=== PATIENT | female | born 1995 | race African-American/Black ===

== ENCOUNTER 2023-05-25 10:29 | Emergency (ER) | payer BC, SELFPAY ==
[2023-05-25 10:42] VITALS: BP 135/87
--- NOTE | 2023-05-25 12:00 | ED.GENMED ---
History of Present Illness
General
Chief Complaint: Female Roving Carrier/Gu symptoms
Source: patient
Exam Limitations: none
Time Seen by Provider: 05/25/23 11:13
Nursing documentation reviewed up to this point in time: agreed with
Travel History
Have you had any contact with someone who has COVID-19?: No
Do you have any symptoms of coronavirus? Fever > 100 degrees, chills, cough, shortness of breath, sore throat, loss of taste or smell, muscle aches, or headache?: No
History of Present Illness
History of Present Illness:
Patient presents to ED for evaluation secondary to vaginal bleeding. Patient states that she started to have abnormal significant bleeding 1 month ago. Patient was evaluated by her PATIENT REGISTRATION CLERK physician at [facility] 2 weeks ago.
Patient was started on medroxyprogesterone and had an outpatient ultrasound ordered, which revealed myometrial cysts. While she was taking the medication, her bleeding had stopped completely. Unfortunately, after last dose of medication 4 days
ago, vaginal bleeding started again 1 day after. Patient has an appointment with her PATIENT REGISTRATION CLERK physician via teleconference this afternoon. However, when she got up this morning her bleeding was heavier and she felt tired, prompting visit to ED for an
evaluation. Denies headache. Denies chest pain or shortness of breath. Denies vomiting. Denies abdominal pain. Denies previous history of similar symptoms.
Review of Systems
Review of Systems
Allergies reviewed?: Yes
All Other Systems: ROS reviewed and negative except as documented in HPI and ROS
Constitutional: Reports no symptoms; Denies fever
EENT: Reports no symptoms
Respiratory: Reports no symptoms; Denies trouble breathing
Cardiac: Reports no symptoms
ABD/GI: Reports no symptoms; Denies vomiting
: Reports bleeding
Musculoskeletal: Reports no symptoms
Skin: Reports no symptoms
Neurological: Reports weakness; Denies dizzy or headache
Phy Exam
Physical Exam
Physical Exam:
Physical Exam
General: mild distress, not acutely ill. afebrile
Head: nc/at. eomi
Neck: supple. no meningeal signs.
Abdomen: normal bowel sounds. not tender.
: (FRANCISCA Gillespie, at bedside) : speculum exam: no pulsatile bleeding noted. no clots. minimal pooled blood noted at vault, removed with 3 long Qtips.
Neuro: alert and oriented. no focal neurological deficits
Skin: no rash
Psychiatric: well kept. interactive and cooperative
Extremities: no edema. no calf tenderness.
Course
Orders/Labs/Results
Orders:
Orders
05/25/23 11:49
Test Result ONCE
05/25/23 11:57
Basic Metabolic Panel Urgent
Complete Blood Count/No Diff Urgent
HCG, Serum Qualitative Screen Urgent
PTT Urgent
Prothrombin Time Urgent
05/25/23 12:35
Tranexamic Acid [Cyklokapron] 1,300 mg PO NOW STA
Abnormal Lab Results
05/25/23
11:57
Hgb 11.6 L g/dL
(12.0-16.0)
Hct 34.7 L %
(37.0-47.0)
MPV 11.1 H fL
(7.4-10.4)
Creatinine 0.5 L mg/dL
(0.6-1.0)
05/25/23 11:57
05/25/23 11:57
Vital Signs
Initial and Last Documented VS:
Initial Vital Signs
Temp Pulse Resp BP Pulse Ox
98.4 F 95 16 135/87 98
05/25/23 10:42 05/25/23 10:42 05/25/23 10:42 05/25/23 10:42 05/25/23 10:42
Last Documented Vital Signs
Temp Pulse Resp BP Pulse Ox
98.4 F 95 16 135/87 98
05/25/23 10:42 05/25/23 10:42 05/25/23 10:42 05/25/23 10:42 05/25/23 10:42
MDM/Problems Addressed
MDM/Problems Addressed:
H/H stable, especially in light of patient's anemia history.
Pt will be given dose of TXA prior to discharge. Pt will speak further with her glass calibrator physician regarding further medication treatment. Otherwise, patient is hemodynamically stable and nontoxic-appearing at time of discharge, to the care of her
family.
*Critical Care Note
Total Time (30-74mins, 75-104mins- exclusive of procedures): Not Applicable
ED Attending Note
-
Portions of this chart may have been created with voice recognition software.� Occasional wrong word or��sound alike� substitutions may have occurred due to the inherent limitations of voice recognition software.
Discharge Plan
Departure
Patient Disposition: Home (Routine Discharge)
Date of Disposition: 05/25/23
Time of Disposition: 12:38
Patient with high blood pressure during this ER visit?: Yes
Condition: Good
Discharge Problem:
Vaginal bleeding
Instructions: Bleeding Between Periods
Referrals:
NONE,* [Family Provider] -
Activity Restrictions/Additional Instructions:
As discussed, please follow-up with your PATIENT REGISTRATION CLERK physician later this afternoon for further evaluation and treatment.
Interventions
Interventions:
*Risk Screen - Suicide Last Done: 05/25/23 11:28
*General Assessment Last Done: 05/25/23 11:28
*Neglect/Abuse Screening Last Done: 05/25/23 11:28
ED- Fall Risk Assessment Last Done: 05/25/23 11:28
*Nursing Disposition Last Done: 05/25/23 13:08
ED-Female Genitourinary Assessment Last Done: 05/25/23 11:31
Discharge Date and Time
Discharge Date/Time: 05/25/23 13:11
[2023-05-25 12:16] LABS: Hematocrit 34.7 % (37.0-47.0); Hemoglobin 11.6 g/dL (12.0-16.0); Mean Corp Hgb Conc. 33.4 g/dL (33.0-37.0); Mean Corpuscular Hgb 27.6 pg (27.0-31.0); Mean Corpuscular Volume 82.6 fL (81.0-99.0); Mean Platelet Volume 11.1 fL (7.4-10.4); Platelet Count 307 10^3/uL (130-400); Red Cell Dist. Width 14.1 % (11.5-14.5); White Blood Cell Count 8.3 10^3/uL (4.8-10.8)
[2023-05-25 12:30] LABS: APTT 27.2 Sec (23.4-35.0); HCG, Serum Qualitative Screen Negative; INR 1.07; PT 13.7 Sec (11.4-14.6)
[2023-05-25 12:32] LABS: Blood Urea Nitrogen 15 mg/dl (7-17); Calcium 9.3 mg/dl (8.4-10.2); Carbon Dioxide 24 mmol/L (22-30); Chloride 106 mmol/L (98-107); Glucose 96 mg/dl (70-99); Potassium 4.2 mmol/L (3.5-5.1); Sodium 136 mmol/L (135-145); eGFR > 60.00
[2023-05-25] MEDS: CYKLOKAPRON 1300 MG PO (12:43)
== END 2023-05-25 13:11 | disposition home or self-care (01) ==
LOC: EMR 10:29
PROVIDERS: EMERGENCY PHYSICIAN Emergency Medicine
DX: N93.9 Abnormal uterine and vaginal bleeding, unspecified (principal)
CPT/HCPCS: 99283; 80048; 84703; 85027; 85610; 85730

== ENCOUNTER 2023-06-09 03:09 | Emergency (ER) | payer BC, SELFPAY ==
[2023-06-09 03:12] VITALS: BP 126/83
--- NOTE | 2023-06-09 03:23 | ED.GENMED ---
History of Present Illness
<MANE Chaves - Last Filed: 06/09/23 06:41>
General
Chief Complaint: Headache
Source: patient
Time Seen by Provider: 06/09/23 03:22
Travel History
Have you had any contact with someone who has COVID-19?: No
Do you have any symptoms of coronavirus? Fever > 100 degrees, chills, cough, shortness of breath, sore throat, loss of taste or smell, muscle aches, or headache?: No
History of Present Illness
History of Present Illness:
Pt is a 27 year old female presenting for L-sided headache. Pt states she woke up with a mild headache but around 3 pm her headache started to become more painful. She has tried approximately 15 baby aspirin and 2 extra strength Tylenol since the
pain began increasing in severity this afternoon with no relief. She states the pain is constant and throbbing in quality, located behind her left eye with radiation of the pain across the top of the left side of her head. She rates the pain as a
10/10 in severity and aggravated by light. She reports some dizziness, and nausea and vomiting, stating she has not been able to eat all day but is able to keep water down. She states she has a history of varicose veins in her lower legs, reporting
the varicose vein located on her right lower leg began throbbing when her headache started. She denies aura or changes in vision. She denies head trauma, fever, chest pain, SOB, neck pain, or abdominal pain. She states she was recently started on
Junel control. She denies personal or family history of migraine or history of blood clotting disorders. She denies FHx of CVD or stroke.
Review of Systems
<MANE Chaves - Last Filed: 06/09/23 06:41>
Review of Systems
All Other Systems: Not applicable
Constitutional: Reports no symptoms
EENT: Reports no symptoms
Respiratory: Reports no symptoms
Cardiac: Reports no symptoms
ABD/GI: Reports nausea and vomiting
: Reports no symptoms
Musculoskeletal: Reports other (leg pain)
Skin: Reports no symptoms
Neurological: Reports dizzy and headache
Endocrine: Reports no symptoms
Hematologic/Lymphatic: Reports no symptoms
Psychiatric: Reports no symptoms
Phy Exam
<MANE Chaves - Last Filed: 06/09/23 06:41>
General Physical Exam
General Presentation: mild distress
General age: appears stated age
General Skin: warm and dry
General Habitus: normal
General Mental: alert
General Hydration: dry mucous membranes
ENT Exam
ENT Exam: EOMI, neck supple and normocephalic
Eye Exam
Eye Exam: PERRL and EOMI
Cardiovascular Exam
Cardiovascular Exam: regular rate/rhythm, no edema, no murmur and other (negative Amberly's sign)
Pulmonary Exam
Pulmonary Exam: lungs clear and no respiratory distress
Gastrointestinal Exam
Gastrointestinal Exam: non tender, soft and non distended
Neurological Exam
Neurological Exam: alert, oriented x3 and other (negative brudzinski sign )
Mental
Mental Status: oriented to person, oriented to place and oriented to time
Musculoskeletal Exam
Musculoskeletal Exam: no edema
Skin Exam
Skin Exam: normal color and warm/dry
Course
<MANE Chaves - Last Filed: 06/09/23 06:41>
Orders/Labs/Results
Orders:
Orders
06/09/23 04:14
0.9% Sodium Chloride 1000 ml [Nss] 1,000 ml IV BOLUS
Diphenhydramine [Benadryl] 25 mg IV NOW STA
Prochlorperazine [Compazine] 10 mg IV NOW STA
06/09/23 04:35
Prochlorperazine [Compazine] 10 mg PO NOW STA
Vital Signs
Initial and Last Documented VS:
Initial Vital Signs
Temp Pulse Resp BP Pulse Ox
98 F 80 16 126/83 100
06/09/23 03:12 06/09/23 03:12 06/09/23 03:12 06/09/23 03:12 06/09/23 03:12
Last Documented Vital Signs
Temp Pulse Resp BP Pulse Ox
98 F 80 16 126/83 100
06/09/23 03:12 06/09/23 03:12 06/09/23 03:12 06/09/23 03:12 06/09/23 03:12
<Farida Mccoy DO - Last Filed: 06/09/23 06:54>
Orders/Labs/Results
Orders:
Orders
06/09/23 04:14
0.9% Sodium Chloride 1000 ml [Nss] 1,000 ml IV BOLUS
Diphenhydramine [Benadryl] 25 mg IV NOW STA
Prochlorperazine [Compazine] 10 mg IV NOW STA
06/09/23 04:35
Prochlorperazine [Compazine] 10 mg PO NOW STA
Vital Signs
Initial and Last Documented VS:
Initial Vital Signs
Temp Pulse Resp BP Pulse Ox
98 F 80 16 126/83 100
06/09/23 03:12 06/09/23 03:12 06/09/23 03:12 06/09/23 03:12 06/09/23 03:12
Last Documented Vital Signs
Temp Pulse Resp BP Pulse Ox
98 F 80 16 126/83 100
06/09/23 03:12 06/09/23 03:12 06/09/23 03:12 06/09/23 03:12 06/09/23 03:12
<MANE Chaves - Last Filed: 06/09/23 06:41>
MDM/Problems Addressed
Differential Diagnosis Includes:
migraine, cluster headache, meningitis, temporal arteritis
MDM/Problems Addressed:
headache
<MANE Chaves - Last Filed: 06/09/23 06:41>
*Pulse Oximetry
Patient hypoxic: no
*Critical Care Note
Total Time (30-74mins, 75-104mins- exclusive of procedures): Not Applicable
Data Reviewed
Review of Other/Old Records Reveals: Labs and Records
<MANE Chaves - Last Filed: 06/09/23 06:41>
Update Note
Update Note:
6:38 am 06/09/23: pt reports her headache and nausea are no longer present. She only report feeling tired at this time.
ED Attending Note
<MANE Chaves - Last Filed: 06/09/23 06:41>
-
Portions of this chart may have been created with voice recognition software.� Occasional wrong word or��sound alike� substitutions may have occurred due to the inherent limitations of voice recognition software.
<Farida Mccoy DO - Last Filed: 06/09/23 06:54>
ED Attending Note
Patient seen and examined by attending physician: Yes
I performed the substantive portion of visit, reviewed & personally made and approve the management plan that is documented in note by myself or CATALINO.: Yes
I performed a history and physical exam of patient and discussed management with resident, I reviewed resident's note and agree with documented findings and plan of care.: Yes
ED Attending Note:
This is a 27-year-old female with no significant past medical history complains of left-sided headache that began yesterday. Initially mild in nature has been persistent accompanied with nausea, intermittent dry heaves. No history of similar
episode of headache. She denies neck pain, no fever no chills, no nasal congestion nor sore throat, no vision difficulty. Has been taking low-dose aspirin as well as Tylenol without relief.
Denies risk of .
Was evaluated in this ED 2 weeks ago with complaints of persistent vaginal bleeding, has been following with [facility]. Labs were unremarkable 2 weeks ago including negative test. Given one-time dose of TXA orally and has since followed up
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
GENERAL: Alert , in no apparent distress
EYE: pupils equal and reactive. anicteric. Discs are sharp bilaterally.
NECK: Supple, nontender, no meningismus, no significant adenopathy.
ENT: posterior pharynx is clear, oral mucosa is moist. TM clear b/l, nares patent.
CARDIAC: Regular rate and rhythm. no murmur.
LUNGS: Clear breath sounds bilaterally, no acute respiratory distress, no wheezes/rales/rhonchi
ABDOMEN: Soft, nondistended, without focal tenderness, normoactive BS.
NEUROLOGICAL: Alert and oriented x3, no focal neuro deficits. Gait is torre and steady.
SKIN: Warm and dry, normal color, skin intact. No rash.
MUSCULOSKELETAL: No C/C/E. peripheral pulses are full and equal b/l. No palpable tenderness.
PSYCH: Normal and appropriate interaction.
History most consistent with acute migraine headache.
No evidence of infectious process and overall patient is well in appearance, nontoxic in appearance.
No focal neurodeficits, no nuchal rigidity, no indication for CT of the head.
Unclear if headache brought on by initiation of control pills.
Recommend initiation of IV fluids, IV Compazine which patient was initially agreeable to but is hesitant to have IV started, apparently was a difficult stick 2 weeks ago.
She request oral dose of medication. Will trial Compazine p.o.
06/09/2023 0654 AM
Patient sleeping soundly and upon awakening she reports complete relief of headache and no further nausea.
Tolerating oral fluids well.
Will discharge to home with recommendations for prompt follow-up with her PCP.
A prescription for Compazine has been provided for as needed return of headache.
Discharge Plan
Departure
Patient Disposition: Home (Routine Discharge)
Date of Disposition: 06/09/23
Time of Disposition: 06:52
Patient with high blood pressure during this ER visit?: No
Condition: Good
Discharge Problem:
ACUTE MIGRAINE HEADACHE
Instructions: Migraines (DC)
Prescriptions:
New
prochlorperazine maleate [Compazine] 10 mg tablet
10 mg PO Q12H PRN (Reason: headache/nausea) Qty: 10 0RF
Referrals:
Veronica Gonsales MD [Family Provider] - Call in 1-3 days for appt
Interventions
Interventions:
*Risk Screen - Suicide Last Done: 06/09/23 03:12
*General Assessment Last Done: 06/09/23 03:12
*Neglect/Abuse Screening Last Done: 06/09/23 03:12
ED- Fall Risk Assessment Last Done: 06/09/23 03:29
ED- Neurological Assessment Last Done: 06/09/23 03:29
[2023-06-09 03:29] VITALS: BMI 26.5
[2023-06-09] MEDS: COMPAZINE 10 MG PO (04:56)
[2023-06-09 07:01] VITALS: BP 106/65
[2023-06-09 07:06] VITALS: BP 106/65
== END 2023-06-09 07:07 | disposition home or self-care (01) ==
LOC: EMR 03:09
PROVIDERS: EMERGENCY PHYSICIAN Emergency Medicine; FAMILY PHYSICIAN Internal Medicine
DX: G43.909 Migraine, unspecified, not intractable, without status migrainosus (principal)
CPT/HCPCS: 99283